=== PATIENT | male | born 1990 | race Caucasian/White ===

== ENCOUNTER 2018-11-27 16:08 | Outpatient (REF) | payer MEDICAID, SELFPAY | END 2018-11-27 16:28 | LOC: NCHCN 16:08 | PROVIDERS: PCP Family Medicine; Visit Provider Family Medicine | DX: F11.21 Opioid dependence, in remission (principal); Z53.8 Procedure and treatment not carried out for other reasons ==

== ENCOUNTER 2018-12-04 15:43 | Outpatient (REF) | payer MEDICAID, SELFPAY ==
[2018-12-04 21:56] LABS: ALT 39 U/L (12-78); AST 36 U/L (15-37); Albumin 4.3 g/dL (3.4-5.0); Alkaline Phosphatase 60 U/L (46-116); Anion Gap 12.2 mmol/L (3-11); BUN 16 mg/dL (7-18); Bilirubin, Total 0.5 mg/dL (0.2-1.0); CO2 26.8 mmol/L (21.0-32.0); Calcium 8.7 mg/dL (8.5-10.1); Chloride 101 mmol/L (98-107); Glucose 96 mg/dL (70-100); Potassium 4.2 mmol/L (3.5-5.1); Sodium 140 mmol/L (136-145); Total Protein 7.2 g/dL (6.4-8.2)
[2018-12-07 09:07] LABS: HIV-1/2 Ag & Ab Screen Negative (NEGAT)
[2018-12-07 12:14] LABS: Hepatitis C Ab w Rflx HCV PCR Negative (NEGAT)
== END 2018-12-04 16:03 ==
LOC: NCHCN 15:43
PROVIDERS: PCP Family Medicine; Visit Provider Family Medicine
DX: F11.21 Opioid dependence, in remission (principal); Z11.3 Encounter for screening for infections with a predominantly sexual mode of transmission; Z11.4 Encounter for screening for human immunodeficiency virus [HIV]; Z11.59 Encounter for screening for other viral diseases
CPT/HCPCS: 80053; 86803; 87389

== ENCOUNTER 2019-01-20 15:16 | Outpatient (REF) | payer MEDICAID, SELFPAY ==
[2019-01-20 22:07] LABS: ALT 31 U/L (12-78); AST 32 U/L (15-37); Albumin 4.2 g/dL (3.4-5.0); Alkaline Phosphatase 56 U/L (46-116); Anion Gap 8.2 mmol/L (3-11); BUN 12 mg/dL (7-18); Bilirubin, Total 0.3 mg/dL (0.2-1.0); CO2 30.8 mmol/L (21.0-32.0); CREATININE 0.75 mg/dL (0.70-1.30); Chloride 102 mmol/L (98-107); Glucose 80 mg/dL (70-100); Sodium 141 mmol/L (136-145); Total Protein 7.5 g/dL (6.4-8.2)
== END 2019-01-20 15:36 ==
LOC: NCHCN 15:16
PROVIDERS: PCP Family Medicine; Visit Provider Family Medicine
DX: F10.10 Alcohol abuse, uncomplicated (principal)
CPT/HCPCS: 80053

== ENCOUNTER 2020-04-24 10:00 | Emergency (ER) | payer OTHER, MEDICAID, SELFPAY ==
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
[2020-04-24 10:05] VITALS: BP 149/94; PULSE 100; TEMP 37.2; O2SAT 97
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
== END 2020-04-24 11:19 | disposition home or self-care (01) ==
PROVIDERS: Emergency Provider Physician Assistant; PCP Family Medicine
DX: R07.81 Pleurodynia (principal); S49.91XA Unspecified injury of right shoulder and upper arm, initial encounter; V86.05XA Driver of 3- or 4- wheeled all-terrain vehicle (ATV) injured in traffic accident, initial encounter
CPT/HCPCS: 99284; 71046; 71100; 73030

== ENCOUNTER 2020-05-25 22:27 | Outpatient (REF) | payer MEDICAID, SELFPAY ==
[2020-05-25 21:20] LABS: Bacteria Negative HPF (Negative); C & S Indicated? No; Crystals Negative HPF (Negative); Epithelial Cells Negative HPF (Negative); Mucus Negative (Negative); RBC 0-2 HPF (0-2); WBC Negative HPF (0-5)
== END 2020-05-25 22:47 ==
LOC: NCHCN 22:27
PROVIDERS: PCP Family Medicine; Visit Provider Family Medicine
DX: R31.29 Other microscopic hematuria (principal)
CPT/HCPCS: 81015

== ENCOUNTER 2021-07-19 12:12 | Outpatient (REF) | payer MEDICAID, SELFPAY ==
[2021-07-23 10:34] LABS: HIV-1/2 Ag & Ab Screen Negative (Negative)
[2021-07-23 10:56] LABS: Hepatitis C Ab w Rflx HCV PCR Negative (Negative)
[2021-07-23 11:32] LABS: Syphilis Serology (RPR) Negative (Negative)
[2021-07-23 15:12] LABS: Chlamydia Result Negative (Negative); GC Result Negative (Negative)
== END 2021-07-19 12:13 | disposition home or self-care (01) ==
LOC: NCHCN 12:12
PROVIDERS: PCP Family Medicine; Visit Provider Registered Nurse
DX: Z11.3 Encounter for screening for infections with a predominantly sexual mode of transmission (principal)
CPT/HCPCS: 86803; 87389; 87491; 87591; 86592

== ENCOUNTER 2021-10-19 14:03 | Outpatient (REF) | payer MEDICAID, SELFPAY ==
[2021-10-19 17:43] LABS: HCT 37.2 % (40.0-50.0); HGB 12.7 g/dL (13.5-17.5); MCH 34.2 pg (27.0-33.0); MCHC 34.1 % (32.0-36.0); MCV 100.3 fL (80-95); MPV 10.7 fL (8.0-11.0); Platelet Count 283 10^3/uL (130-400); RBC 3.71 10^6/uL (4.36-5.78); RDW 11.9 % (11.8-14.1); RDW-SD 43.3 fL; WBC 7.27 10^3/uL (4.4-10.8)
[2021-10-19 18:18] LABS: ALT 51 U/L (16-63); AST 34 U/L (15-37); Alkaline Phosphatase 82 U/L (46-116); Anion Gap 7.9 mmol/L (3-11); BUN 13 mg/dL (7-18); Bilirubin, Total 0.4 mg/dL (0.2-1.0); CO2 29.1 mmol/L (21.0-32.0); Calcium 8.7 mg/dL (8.5-10.1); Chloride 103 mmol/L (98-107); Folate 6.2 ng/mL (8.6-20.0); Glucose 104 mg/dL (74-106); Potassium 4.9 mmol/L (3.5-5.1); Sodium 140 mmol/L (136-145); Total Protein 7.3 g/dL (6.4-8.2)
== END 2021-10-19 14:04 | disposition home or self-care (01) ==
LOC: NCHCN 14:03
PROVIDERS: PCP Family Medicine; Visit Provider Family Medicine
DX: F41.9 Anxiety disorder, unspecified (principal)
CPT/HCPCS: 80053; 85027; 82746

== ENCOUNTER 2023-07-11 21:18 | Outpatient (REF) | payer OTHER, MEDICAID, SELFPAY ==
--- OUTSIDE RECORDS SUMMARY | 2023-07-11 21:20 | XMS_ITS | Continuity of Care Document ---
Author Name Unknown Organization [facility] Address [address] [place] [address] Care Team Providers Care Process Improvement Consultant Name Role Phone Jayden Sanchez Primary Care Physician Encounter [facility] Date(s): 05/01/23 - 05/01/23 [facility] [address] [place] [address] Discharge Disposition: Home Allergies, Adverse Reactions, Alerts No Known Medication Allergies Problem List Condition Confirmation Course Effective Dates Status Health St [facility] Informant Wrist pain Confirmed Active Social History Social History Type Response Tobacco Former tobacco user Tobacco Use:. Sex Male Patient Care team information Care Team Personnel Name: Jayden Sanchez MD Position: No Access Member Role: Primary Care Physician Address: Address: [facility] [address] [place] [address]-
--- OUTSIDE RECORDS SUMMARY | 2023-07-11 21:20 | XMS_ITS | CCD ---
Author Name Unknown Address [address] [place] [address] [phone] Organization Unknown Address [address] [place] [address] [phone] Care Team Providers Care Dealer Analyst Name Role Phone DEIDRA VILLA Attending Physician [phone] DEIDRA VILLA Rounding (Secondary) Physic cindy [phone] Vital Signs Unknown or Not Available. Allergies Unknown or Not Available. Procedures Unknown or Not Available. History of Immunizations Unknown or Not Available. Problems Unknown or Not Available. Results Unknown or Not Available. Active Medications Unknown or Not Available. Medications Administered During Visit Unknown or Not Available. 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 Discharge Instructions You were admitted to [facility] on 10/14/2022 11:14 with a principal diagnosis of Other lesions of median nerve, right upper limb You were discharged from [facility] on 10/14/2022 00:00 Should you have any questions prior to discharge, please contact a member of your healthcare team. If you have left the hospital and have any questions, please contact your primary care physician. Chief Complaint and Reason For Visit Unknown or Not Available. Function Status Unknown or Not Available. Plan of Care Unknown or Not Available. Referral/Transition of Care Unknown or Not Available.
--- OUTSIDE RECORDS SUMMARY | 2023-07-11 21:20 | XMS_ITS | CCD ---
Author Name Unknown Address [address] [place] [address] [phone] Organization Unknown Address [address] [place] [address] [phone] Care Team Providers Care Informaticist Name Role Phone DEIDRA VILLA Attending Physician [phone] DEID[address] VILLA Rounding (Secondary) Physic cindy [phone] Vital Signs Unknown or Not Available. Allergies Unknown or Not Available. Procedures Unknown or Not Available. History of Immunizations Unknown or Not Available. Problems Unknown or Not Available. Results Unknown or Not Available. Active Medications Unknown or Not Available. Medications Administered During Visit Unknown or Not Available. Encounters Encounter Diagnosis Diagnosis Code Start Date Carpal tunnel syndrome, bilateral upper limbs G5 603 09/11/2022 Social History Smoking Status Code Start Date End Date Current every day smoker [id number] Patient Decision Aids Unknown or Not Available. Discharge Instructions You were admitted to [facility] on 09/11/2022 15:06 with a principal diagnosis of Carpal tunnel syndrome, bilateral upper limbs You were discharged from [facility] on 09/11/2022 00:00 Should you have any questions prior [...]
--- OUTSIDE RECORDS SUMMARY | 2023-07-11 21:20 | XMS_ITS | CCD ---
Author Name Unknown Address [address] [place] [address] [phone] Organization Unknown Address [address] [place] [address] [phone] Care Team Providers Care Lead Network Architect Name Role Phone MÓNICA ENCISO Attending Physician [phone] MÓNICA ENCISO Rounding (Secondary) Physician [phone] Vital Signs Unknown or Not Available. Allergies Unknown or Not Available. Procedures Procedure Code Procedure Type Date Nerve Conduction Studies 9-10 Studies 03050 CPT 09/17/2022 Needle EMG Ea Extremity w/Paraspinl Area Limited 07972 CPT 09/17/2022 History of Immunizations Unknown or Not Available. Problems Unknown or Not Available. Results Unknown or Not Available. Active Medications Unknown or Not Available. Medications Administered During Visit Unknown or Not Available. Encounters Encounter Diagnosis Diagnosis Code Start Date Abnormal electromyogram [EMG] T95112 Social History Smoking Status Code Start Date End Date Current every day smoker [id number] Patient Decision Aids Unknown or Not Available. Discharge Instructions You were admitted to [facility] on 09/17/2022 10:35 with a principal diagnosis of Abnormal electromyogram [EMG] You had the following procedures done:Nerve Conduction Studies 9-10 StudiesNeedle EMG Ea Extremity w/Paraspinl Area Limited You were discharged from [facility] on 09/17/2022 00:00 Should you have any questions prior [...]
--- OUTSIDE RECORDS SUMMARY | 2023-07-11 21:21 | XMS_ITS | CCD ---
Author Name Unknown Address [address] [place] [address] [id number] Organization Unknown Address [address] [place] [address] [phone] Care Team Providers Care Mill Operator Name Role Phone DEIDRA VILLA Attending Physician [phone] Vital Signs Vital Sign Value Unit Date/Time Recent/Initial ? BMI (Body Mass Index) 24.28 kg/m^2 01/08/2023 13: 53 Initial VS Weight Measured 155.01 lbs 01/08/2023 13:53 Ini tial VS Height 67 in 01/08/2023 13:53 Initial VS BSA (Body Surface Area) 1.82 m^2 01/08/2023 1 3:53 Initial VS BP Systolic 112 mmHg 01/16/2023 11:14 Initial VS BP Diastolic 63 mmHg 01/16/2023 11:14 Initia l VS Respiratory Rate 6 bpm 01/16/2023 11:14 In itial VS Heart Rate 82 bpm 01/16/2023 11:14 Initial VS O2 % BldC Oximetry 95 % 01/16/2023 11:14 Initial VS Body Temperature 36.4 degrees 01/16/2023 11:14 In itial VS Allergies Allergy Code Allergy Type Reaction Status MORPHINE 7052 Drug allergy Active AMITRIPTYLINE 704 Drug allergy Headache Active Procedures Procedure Code Procedure Type Date Neuroplasty &/Or Transposition; Ulnar Nerve At Elbow 6 4718 CPT 01/16/2023 Neuroplasty &/Or Transpositi on; Median Nerve At Carpal Tunnel 98058 CPT 01/16/2023 Anesthesia, Nerves/Muscles/T endons/Fascia & Bursae, Upper Arm & Elbow; NOS 24049 CPT 01/16/2023 History of Immunizations Unknown or Not Available. Problems Unknown or Not Available. Results Unknown or Not Available. Active Medications Medications Administered During Visit Medication Dose Units Frequency Route Date/Time of Last Dose CeFAZolin IVPB FROZEN PREMIX : 2GM/100ML 2 GM X1 01/16/2023 07:5 5 ACETAMINOPHEN TABLET: 325MG 975 MG X1 PO 01/16/2023 06:55 CELECOXIB CAPSULE: 100MG 200 MG X1 PO 01/16/2023 06:55 MIDAZOLAM INJ SDV: 2MG/2ML 2 MG X1 IVP 01/16/2023 07:26 Encounters Encounter Diagnosis Diagnosis Code Start Date Lesion of ulnar nerve, left upper limb G5622 01/16/2023 Social History Smoking Status Code Start Date End Date Current every day smoker [id number] Patient Decision Aids Unknown or Not Available. Discharge Instructions You were admitted to [facility] on 01/16/2023 07:59 with a principal diagnosis of Lesion of ulnar nerve, left upper limb You had the following procedures done:Neuroplasty &/Or Transposition; Ulnar Nerve At ElbowNeuroplasty &/Or Transposition; Median Nerve At Carpal TunnelAnesthesia, Nerves/Muscles/Tendons/Fascia & Bursae, Upper Arm & Elbow; NOS You were discharged from [facility] on 01/16/2023 11:10 Should you have any questions prior to [...]
--- OUTSIDE RECORDS SUMMARY | 2023-07-11 21:21 | XMS_ITS | CCD ---
Author Name Unknown Address [address] [place] [address] [phone] Organization Unknown Address [address] [place] [address] [phone] Care Team Providers Care Environmental Officer Name Role Phone KRISTIN MCKEON MD Attending Physician [phone] Vital Signs Unknown or Not Available. Allergies Unknown or Not Available. Procedures Unknown or Not Available. History of Immunizations Unknown or Not Available. Problems Unknown or Not Available. Results Unknown or Not Available. Active Medications Unknown or Not Available. Medications Administered During Visit Unknown or Not Available. Encounters Encounter Diagnosis Diagnosis Code Start Date Hypertrophy of breast N62 05/22/2021 Social History Smoking Status Code Start Date End Date Current every day smoker [id number] Patient Decision Aids Unknown or Not Available. Discharge Instructions You were admitted to [facility] on 05/22/2021 09:56 with a principal diagnosis of Hypertrophy of breast You were discharged from [facility] on 05/22/2021 09:56 Should you have any questions prior to [...]
--- OUTSIDE RECORDS SUMMARY | 2023-07-11 21:21 | XMS_ITS | CCD ---
Author Name Unknown Address [address] [place] [address] [phone] Organization Unknown Address [address] [place] [address] [phone] Care Team Providers Care Refractory Furnace Designer Name Role Phone DEIDRA VILLA Attending Physician [phone] DEIDRA VILLA Rounding (Secondary) Physic cindy [phone] Vital Signs Unknown or Not Available. Allergies Allergy Code Allergy Type Reaction Status MORPHINE 7052 Drug allergy Active AMITRIPTYLINE 704 Drug allergy Headache Active Procedures Unknown or Not Available. History of [...] Date End Date Current every day smoker [id number] Patient Decision Aids Unknown or Not Available. Discharge Instructions You were admitted to [facility] on 01/16/2023 00:35 with a principal diagnosis of Lesion of ulnar nerve, left upper limb You were discharged from [facility] on 01/16/2023 00:35 Should you have any questions prior to [...]
--- OUTSIDE RECORDS SUMMARY | 2023-07-11 21:21 | XMS_ITS | CCD ---
Author Name Unknown Address [address] [place] [address] [phone] Organization Unknown Address [address] [place] [address] [phone] Care Team Providers Care Petrography Teacher Name Role Phone DEIDRA VILLA Attending Physician [phone] Vital Signs Unknown or Not Available. Allergies [...] Encounters Encounter Diagnosis Diagnosis Code Start Date Encounter for other orthopedic aftercare Z4789 02/04/2023 Social History Smoking Status Code Start Date End Date Current every day smoker [id number] Patient Decision Aids Unknown or Not Available. Discharge Instructions You were admitted to on 02/04/2023 13:56 with a principal diagnosis of Encounter for other orthopedic aftercare You were discharged from on 04/01/2023 11:59 Should you have any questions prior to [...]
[2023-07-13 22:35] LABS: Chlamydia Result Negative (Negative); GC Result Negative (Negative)
[2023-07-14 12:52] LABS: Syphilis Serology (RPR) Negative (Negative)
== END 2023-07-11 21:19 | disposition home or self-care (01) ==
LOC: NCHCN 21:18
PROVIDERS: PCP Family Medicine; Visit Provider Family Medicine
DX: Z11.3 Encounter for screening for infections with a predominantly sexual mode of transmission (principal)
CPT/HCPCS: 87491; 87591; 86592

== ENCOUNTER 2024-05-18 15:14 | Outpatient (REF) | payer OTHER, MEDICAID, SELFPAY ==
[2024-05-18 15:16] LABS: ALT 25 U/L (16-63); AST 21 U/L (15-37); Albumin 4.2 g/dL (3.4-5.0); Alkaline Phosphatase 66 U/L (46-116); BUN 13 mg/dL (7-18); Bilirubin, Total 0.45 mg/dL (0.2-1.0); CREATININE 0.9 mg/dL (0.70-1.30); Calcium 9.2 mg/dL (8.5-10.1); Chloride 103 mmol/L (98-107); Estimated GFR 115.65 (mL/min/1.73m2); Glucose 106 mg/dL (74-106); Lipase 26 U/L (16-77); Potassium 4.9 mmol/L (3.5-5.1); Sodium 141 mmol/L (136-145); Total Protein 7.3 g/dL (6.4-8.2)
[2024-05-19 09:02] LABS: Hepatitis C Ab w Rflx HCV PCR Negative (Negative)
[2024-05-19 09:09] LABS: HIV-1/2 Ag & Ab Screen Negative (Negative)
[2024-05-19 12:19] LABS: Syphilis Serology (RPR) Negative (Negative)
[2024-05-19 14:29] LABS: Chlamydia Result Negative (Negative); GC Result Negative (Negative)
== END 2024-05-18 15:15 | disposition home or self-care (01) ==
LOC: NCHCN 15:14
PROVIDERS: PCP Family Medicine; Visit Provider Family Medicine
DX: R10.9 Unspecified abdominal pain (principal); Z11.3 Encounter for screening for infections with a predominantly sexual mode of transmission; Z11.4 Encounter for screening for human immunodeficiency virus [HIV]; Z11.59 Encounter for screening for other viral diseases
CPT/HCPCS: 80053; 83690; 86803; 87389; 87491; 87591; 86592

== ENCOUNTER 2025-07-19 20:01 | Outpatient (REF) | payer OTHER, SELFPAY ==
[2025-07-19 15:38] LABS: ALT 23 U/L (16-63); AST 22 U/L (15-37); Albumin 4.2 g/dL (3.4-5.0); Alkaline Phosphatase 61 U/L (46-116); Anion Gap 8.3 mmol/L (3-11); BUN 15 mg/dL (7-18); Bilirubin, Total 0.5 mg/dL (0.2-1.0); CO2 30.7 mmol/L (21.0-32.0); Calcium 9.3 mg/dL (8.5-10.1); Chloride 102 mmol/L (98-107); Estimated GFR 119.10 (mL/min/1.73m2); Glucose 109 mg/dL (74-106); Potassium 4.1 mmol/L (3.5-5.1); Sodium 141 mmol/L (136-145); Total Protein 7.5 g/dL (6.4-8.2)
== END 2025-07-19 20:02 | disposition home or self-care (01) ==
LOC: NCHCN 20:01
PROVIDERS: PCP Family Medicine; Visit Provider Family Medicine
DX: F11.21 Opioid dependence, in remission (principal)
CPT/HCPCS: 80053